=== PATIENT | female | born 1975 | race American Indian/Alaskan Native ===

== ENCOUNTER 2017-09-24 15:49 | Emergency (ER) | payer SELFPAY | END 2017-09-24 17:07 | disposition left against medical advice (07) | LOC: ED 15:49 | DX: Z02.89 Encounter for other administrative examinations (principal); J11.1 Influenza due to unidentified influenza virus with other respiratory manifestations ==

== ENCOUNTER 2017-10-07 16:35 | Emergency (ER) | payer SELFPAY | END 2017-10-07 17:01 | disposition left against medical advice (07) | LOC: ED 16:35 | DX: Z02.89 Encounter for other administrative examinations (principal); R25.2 Cramp and spasm ==

== ENCOUNTER 2018-01-30 00:58 | Emergency (ER) | payer SELFPAY ==
[2018-01-30 01:18] VITALS: PULSE 81; RESP 18; TEMP 98.2; O2SAT 100
--- NOTE | 2018-01-30 01:27 | ED PDOC ---
Arrival/HPI - General Chief Complaint: Upper Extremity Problem/Injury Time Seen by Provider: 01/30/18 01:24 Historian: Patient - History of Present Illness Narrative History of Present Illness (Text): 01/30/18 01:24 43 year old female, with no significant past medical history, who presents to [facility] emergency department complaining of right wrist pain for 2 days. Patient describes pain as a "shooting pain" with occasional numbness. Patient notes she holds and carries her two babies often. Patient denies any fever, chills, chest pain, shortness of breath, nausea, vomiting, diarrhea, back pain, neck pain, headache, dizziness, trauma/injury, or any other complaints. Time/Duration: < week (2 days) Symptom Onset: Gradual Symptom Course: Unchanged Activities at Onset: Light Context: Home Past Medical History - Provider Review Nursing Documentation Reviewed: Yes - Psychiatric Hx Substance Use: No - Surgical History Hx Section: Yes (x3) Hx Tonsillectomy: Yes Family/Social History - Physician Review Nursing Documentation Reviewed: Yes Family/Social History: Unknown Family HX Smoking Status: Never Smoked Hx Alcohol Use: No Hx Substance Use: No Allergies/Home Meds Allergies/Adverse Reactions: Allergies Penicillins Allergy (Verified 01/30/18 01:14) SWELLING Review of Systems - Review of Systems Constitutional: Normal Eyes: Normal ENT: Normal Respiratory: Normal. absent: SOB, Cough Cardiovascular: Normal. absent: Chest Pain Gastrointestinal: Normal. absent: Abdominal Pain, Diarrhea, Nausea, Vomiting Genitourinary Female: Normal. absent: Dysuria, Frequency, Hematuria, Urine Output Changes Musculoskeletal: Other (rt wrist pain) Skin: Normal. absent: Rash Neurological: Normal. absent: Headache, Dizziness Endocrine: Normal Hemo/Lymphatic: Normal Psychiatric: Normal Physical Exam - Physical Exam Narrative Physical Exam (Text): 01/30/18 01:28 Constitutional: No acute distress. Head: Normocephalic. Atraumatic. Eyes: PERRL. ENT: Moist mucous membranes. Neck: Supple. Cardiovascular: Regular rate. Chest: No tenderness. Respiratory: Clear to auscultation bilaterally. GI: Soft. Nontender. Nondistended. Back: No CVA tenderness. Musculoskeletal: Tenderness to rt radial wrist. Reproducible pain of ulnar abduction. Sensation to touch intact. ROM intact to all digits. Skin: No rash. Neurologic: Alert, no focal deficit. Vital Signs Temp Pulse Resp BP Pulse Ox 01/30/18 02:03 81 18 130/87 100 01/30/18 01:15 98.2 F 81 18 133/97 H 100 Medical Decision Making ED Course and Treatment: 01/30/18 01:29 Impression: 43 year old female presents to the emergency department complaining of rigth wrist pain for 2 days. Plan: -- right wrist splint -- Ibuprofen -- Reassess and disposition Progress Notes: - Medication Orders Current Medication Orders: Discontinued Medications Ibuprofen (Motrin Tab) 600 mg PO STAT STA Stop: 01/30/18 01:28 Last Admin: 01/30/18 01:33 Dose: 600 mg MAR Pain/Vitals Document 01/30/18 01:33 AD (Rec: 01/30/18 01:37 AD [email or web address] Pain Scale Used Pain Scale Used Numeric Location Left, Right or Bilateral Right Pain Location Body Site Wrist Intensity 6 Scale Used Numeric Pain Behavior Facial Grimacing - Scribe Statement The provider has reviewed the documentation as recorded by the Scribmadonna Sheppard All medical record entries made by the Scribe were at my direction and personally dictated by me. I have reviewed the chart and agree that the record accurately reflects my personal performance of the history, physical exam, medical decision making, and the department course for this patient. I have also personally directed, reviewed, and agree with the discharge instructions and disposition. Disposition/Present on Arrival - Present on Arrival Any Indicators Present on Arrival: No History of DVT/PE: No History of Uncontrolled Diabetes: No Urinary Catheter: No History of Decub. Ulcer: No History Surgical Site Infection Following: None - Disposition Have Diagnosis and Disposition been Completed?: Yes Diagnosis: Wrist pain Disposition: HOME/ ROUTINE Disposition Time: :27 Patient Plan: Discharge Condition: STABLE Discharge Instructions (ExitCare): De Quervain's Tenosynovitis Prescriptions: Famotidine [Pepcid] 1 tab PO BID #14 tab Ibuprofen [Motrin] 600 mg PO Q6 #25 tab Referrals: Robbie Bailey MD [Staff Provider] - Follow up with primary Forms: [employer] (Fijian)
[2018-01-30 02:04] VITALS: BP 130/87
== END 2018-01-30 02:04 | disposition home or self-care (01) ==
LOC: ED 00:58
DX: M25.531 Pain in right wrist (principal)

== ENCOUNTER 2018-02-15 01:39 | Emergency (ER) | payer SELFPAY ==
[2018-02-15] MEDS ORDERED: Sodium Chloride 0.9% 1,000 ML IV STA (02:18)
--- NOTE | 2018-02-15 02:19 | ED PDOC ---
Arrival/HPI - General Chief Complaint: Female Genitourinary Time Seen by Provider: 02/15/18 01:51 Historian: Patient - History of Present Illness Narrative History of Present Illness (Text): 02/15/18 02:14 Lore Aly is a 43 year old female, whose past medical history includes UTIs, who presents to the emergency department complaining of some heamaturia and occassional mild left flank discomfort.Some urinary frequency earlier. Patient denies any fevers, chills, chest pain, shortness of breath, abdominal pain, nausea, vomiting, diarrhea,dysuria, neck pain, headache, dizziness, or any other complaint.Pt. feels it may be the beginning of UTI. Symptom Onset: Gradual Symptom Course: Intermittent Activities at Onset: Light Context: Home Past Medical History - Provider Review Nursing Documentation Reviewed: Yes - Infectious Disease Hx of Infectious Diseases: None - Cardiac Hx Cardiac Disorders: No - Psychiatric Hx Substance Use: No - Surgical History Hx Section: Yes (x3) Hx Tonsillectomy: Yes - Anesthesia Hx Anesthesia: No Family/Social History - Physician Review Nursing Documentation Reviewed: Yes Family/Social History: Unknown Family HX Smoking Status: Never Smoked Hx Alcohol Use: No Hx Substance Use: No Allergies/Home Meds Allergies/Adverse Reactions: Allergies Penicillins Allergy (Verified 02/15/18 02:01) SWELLING Review of Systems - Physician Review All systems were reviewed & negative as marked: Yes - Review of Systems Constitutional: Normal. absent: Fevers Eyes: Normal ENT: Normal Respiratory: Normal. absent: SOB, Cough Cardiovascular: Normal. absent: Chest Pain Gastrointestinal: Normal. absent: Abdominal Pain, Diarrhea, Nausea, Vomiting Genitourinary Female: Hematuria. absent: Frequency Musculoskeletal: Back Pain (+left flank pain). absent: Neck Pain Skin: Normal. absent: Rash Neurological: Normal. absent: Headache, Dizziness Endocrine: Normal Hemo/Lymphatic: Normal Psychiatric: Normal Physical Exam Vital Signs Reviewed: Yes Vital Signs Temp Pulse Resp BP Pulse Ox 02/15/18 02:28 97.8 F 65 17 99/59 L 100 Temperature: Afebrile Blood Pressure: Normal Pulse: Regular Respiratory Rate: Normal Appearance: Positive for: Well-Appearing, Non-Toxic, Comfortable Pain Distress: None Mental Status: Positive for: Alert and Oriented X 3 - Systems Exam Head: Present: Atraumatic, Normocephalic Pupils: Present: PERRL Extroacular Muscles: Present: EOMI Conjunctiva: Present: Normal Mouth: Present: Moist Mucous Membranes Neck: Present: Normal Range of Motion. No: Meningeal Signs, MIDLINE TENDERNESS , Paraspinal Tenderness Respiratory/Chest: Present: Clear to Auscultation, Good Air Exchange. No: Respiratory Distress, Accessory Muscle Use Cardiovascular: Present: Regular Rate and Rhythm, Normal S1, S2. No: Murmurs Abdomen: Present: Normal Bowel Sounds. No: Tenderness, Distention, Peritoneal Signs Back: Present: Normal Inspection. No: CVA Tenderness, Midline Tenderness, Paraspinal Tenderness Upper Extremity: Present: Normal Inspection. No: Cyanosis, Edema Lower Extremity: Present: Normal Inspection. No: Edema Neurological: Present: GCS=15, CN II-XII Intact, Speech Normal Skin: Present: Warm, Dry, Normal Color. No: Rashes Psychiatric: Present: Alert, Oriented x 3, Normal Insight, Normal Concentration Medical Decision Making ED Course and Treatment: 02/15/18 02:15 Impression: 43 year old female complaining of left flank pain and hematuria for 2 days. Plan: -- Labs -- UA -- IV fluids -- Reassess and disposition Progress Notes: 02/15/18 02:27 RN reports pt refusing labs. 02/15/18 03:06 Pt still refusing bloodwork, XR, or CT scan. States she just wants antibiotics for UTI. - Lab Interpretations Lab Results: Lab Results 02/15/18 02:19: Urine Color Yellow, Urine Appearance Clear, Urine pH 7.0, Ur Specific [place] 1.020, Urine Protein 30 H, Urine Glucose (UA) Negative, Urine Ketones Trace H, Urine Blood Negative, Urine Nitrate Negative, Urine Bilirubin Negative, Urine Urobilinogen 1.0 H, Ur Leukocyte Esterase Negative, Urine RBC 0 - 2, Urine WBC 0 - 2, Ur Epithelial Cells 1 - 3, Urine Bacteria Few, Urine HCG, Qual Negative - RAD Interpretation Radiology Orders: 02/15/18 03:04 ABD & PELVIS W/O PO OR IV CONT [CT] Stat - Medication Orders Current Medication Orders: Sodium Chloride (Sodium Chloride 0.9%) 1,000 mls @ 999 mls/hr IV .Q1H1M STA Stop: 02/15/18 03:18 - Scribe Statement The provider has reviewed the documentation as recorded by the Parth Colunga Provider Scribe Attestation: All medical record entries made by the Scribe were at my direction and personally dictated by me. I have reviewed the chart and agree that the record accurately reflects my personal performance of the history, physical exam, medical decision making, and the department course for this patient. I have also personally directed, reviewed, and agree with the discharge instructions and disposition. Disposition/Present on Arrival - Present on Arrival Any Indicators Present on Arrival: No History of DVT/PE: No History of Uncontrolled Diabetes: No Urinary Catheter: No History of Decub. Ulcer: No History Surgical Site Infection Following: None - Disposition Have Diagnosis and Disposition been Completed?: Yes Diagnosis: UTI (urinary tract infection) Disposition: HOME/ ROUTINE Disposition Time: 03:15 Patient Plan: Discharge Condition: GOOD Discharge Instructions (ExitCare): Urinary Tract Infection, Adult (DC) Additional Instructions: Drink plenty of liquids/take meds as prescribed/follow up with your doctor this week Prescriptions: Nitrofurantoin Macrocrystals [Macrobid] 100 mg PO BID #6 cap Forms: [employer] (Lithuanian)
[2018-02-15 02:29] VITALS: RESP 17; O2SAT 100
[2018-02-15 02:42] LABS: URINE BILIRUBIN NEGATIVE (NEGATIVE); URINE BLOOD NEGATIVE (NEGATIVE); URINE GLUCOSE (UA) NEGATIVE (NEGATIVE); URINE LEUKOCYTE ESTERASE NEGATIVE Leu/uL (NEGATIVE); URINE PROTEIN 30 mg/dL (<30 mg/dL)
[2018-02-15 02:52] LABS: URINE APPEARANCE CLEAR (CLEAR); URINE COLOR YELLOW (YELLOW)
[2018-02-15 02:55] LABS: URINE BACTERIA FEW (NEG); URINE RBC 0 - 2 /hpf (0-2); URINE WBC 0 - 2 /hpf (0-6)
[2018-02-15 02:57] LABS: HCG,QUALITATIVE URINE NEGATIVE (NEGATIVE)
[2018-02-15 03:55] VITALS: BP 109/54; PULSE 82; TEMP 98
== END 2018-02-15 03:55 | disposition home or self-care (01) ==
LOC: ED 01:39
DX: N39.0 Urinary tract infection, site not specified (principal)